=== PATIENT | male | born 1975 | race Caucasian/White ===

== ENCOUNTER 2022-09-09 06:24 | Emergency (ER) | payer BC, SELFPAY ==
[2022-09-09 06:30] VITALS: BP 150/100; PULSE 100; RESP 20; TEMP 36.4; O2SAT 94; BMI 40.6
--- NOTE | 2022-09-09 06:39 | W.ED.WOUNDLC ---
HPI - Wound/Laceration General: Chief Complaint: Wound/Laceration Stated Complaint: Right Arm Lac/stab Time Seen by Provider: 09/09/22 06:30 Source: patient Mode of arrival: ambulatory Limitations: no limitations History of Present Illness: 47-year-old male states that he is opening a package this morning of water with a knife. He states he went to put the water back in the fridge he had a knife in his left hand and shot the fridge door the right and accidentally stabbed himself in the right forearm. He does have a small less than 1 cm laceration to his right forearm no active bleeding he is unsure when his last tetanus was. Associated symptoms: Denies fever(s) Review of Systems Const: Denies: fever(s) ENMT: Denies: throat pain Card: Denies: chest pain GI: Denies: abdominal pain Musc: Denies: back pain Skin/Breast: Denies: rash Neuro: Denies: headache(s) Physical Exam Const: COMMON NORMALS: patient oriented x3 HENMT: COMMON NORMALS: normocephalic HEAD & SCALP: normocephalic Eye: COMMON NORMALS: conjunctivae normal CONJUNCTIVA: Yes conjunctivae normal Neck/C-Spine: COMMON NORMALS: supple Chest: COMMONS NORMALS: normal inspection of the chest Resp: COMMON NORMALS: normal respiratory effort Cardio: COMMON NORMALS: regular rate RATE: regular rate GI: INSPECTION: Yes normal to inspection Extremity: NARRATIVE EXTREMITY EXAM: Roughly 1 cm laceration to right forearm no active bleeding distal pulses and sensation intact Neuro: COMMON NORMALS: patient oriented x3 Psych: COMMON NORMALS: mental status grossly normal Skin: COMMON NORMALS: no rashes or lesions noted GENERAL SKIN EXAM: no rashes or lesions noted Procedures Laceration Laceration 1: Site: upper extremity Side (If applicable): right Size (cm): 1 Description: linear Depth: simple, single layer Pre-repair: wound explored and irrigated extensively Skin layer closed with: other (Dermabond) Course Vital Signs: Vital signs: Vital Signs Temperature 97.6 F 09/09/22 06:30 Pulse Rate 100 09/09/22 06:30 Respiratory Rate 20 H 09/09/22 06:30 Blood Pressure 150/100 09/09/22 06:30 Pulse Oximetry 94 09/09/22 06:30 Oxygen Delivery Me thod Room Air 09/09/22 06:30 MDM - Wound/Laceration Medical Decision Making Patient presents for a small laceration to his right forearm he has no signs of arterial or nerve damage or tendon damage. Wound was repaired with Dermabond he is given a tetanus he stable for discharge. Discharge Plan Discharge Patient Disposition: Home Clinical Impression: Laceration Condition: Stable Prescriptions: No Action No Known Home Medications Discharge Orders: Discharge ED (Routine); Ordered 09/09/22 Ordered By: Natasha Field Referrals: Dada Scott MD [Primary Care Provider] - Discharge Diet: Advance as tolerated Discharge Activity: Resume usual activity Patient Instructions: Laceration (ED), Skin Adhesive Care (ED) Coding Level of Care Code ED Transfer And Pumphouse Operator Chief for Mariana Garner
[2022-09-09] MEDS: tetanus-dipt-pertussis 0.5 mL SDV IM (06:42)
[2022-09-09 06:55] VITALS: PULSE 100; RESP 18; O2SAT 97
== END 2022-09-09 06:56 | disposition home or self-care (01) ==
PROVIDERS: Emergency Provider Emergency Medicine; PCP Family Medicine
DX: S51.811A Laceration without foreign body of right forearm, initial encounter (principal); W26.0XXA Contact with knife, initial encounter; Z23 Encounter for immunization
CPT/HCPCS: 12001; 90715; 99282